=== PATIENT | male | born 1995 | race African-American/Black ===

== ENCOUNTER 2024-08-07 09:26 | Day surgery (SDC) | payer OTHER ==
[~2024-08-07] VITALS: Ht 180.3 cm; Wt 90.6 kg
[~2024-08-07 09:26] MED LIST: OMEP40CA4 PO
[2024-08-07 10:59] VITALS: TEMP 96.8
[2024-08-07 11:24] VITALS: BP 111/64; O2SAT 96
== END 2024-08-07 11:40 | disposition home or self-care (01) ==
LOC: M OPP 09:26
PROVIDERS: ATTEND Internal Medicine Gastroenterology
DX: K44.9 Diaphragmatic hernia without obstruction or gangrene (principal); K31.89 Other diseases of stomach and duodenum; R11.2 Nausea with vomiting, unspecified; Z79.899 Other long term (current) drug therapy